=== PATIENT | male | born 1970 | race Caucasian/White ===

== ENCOUNTER 2022-04-02 12:32 | Emergency (ER) | payer OTHER, MEDICAID, SELFPAY ==
[2022-04-02] VITALS (8 sets, daily range): BP systolic 126–143; BP diastolic 84–90; PULSE 76–92; RESP 22; TEMP 36.6; O2SAT 94–98
--- NOTE | 2022-04-02 13:07 | DI.RAD.S_ITS ---
PROCEDURE: XR CHEST 1V INDICATIONS: chest pain TECHNIQUE: One view of the chest was acquired. COMPARISON: None. FINDINGS: Surgical changes and devices: None. Lungs and pleura: Lungs are clear. No pleural effusions or pneumothorax. Mediastinum: Mediastinal contours appear normal. Heart size is normal. Bones and chest wall: No suspicious bony lesions. Overlying soft tissues appear unremarkable. IMPRESSION: No acute cardiopulmonary abnormality. Dictated by: Ty Nova M.D. on 04/02/2022 at 14:37 Approved by: Ty Nova M.D. on 04/02/2022 at 14:38
[2022-04-02 13:24] LABS: Add Manual Diff / Slide Review NO; Basophils Absolute Auto 0 /uL (0-100); Basophils Percent Auto 0.5 % (0-2); Eosinophils Absolute Auto 300 /uL (0-450); Eosinophils Percent Auto 3.2 % (2-4); Hematocrit 42.8 % (41-53); Hemoglobin 14.7 g/dL (13.5-17.5); Lymphocytes Absolute Auto 2200 /uL (1100-4500); Mean Corpuscular HGB Conc 34.4 % (30-36); Mean Corpuscular Hemoglobin 28.9 PG (26-34); Mean Corpuscular Volume 84.1 fL (80-100); Monocytes Absolute Auto 600 /uL (0-900); Monocytes Percent Auto 7.3 % (3-14); Neutrophils Absolute Auto 5200 /uL (1500-7000); Platelet Count 290 X10^3/uL (150-400); Red Blood Cell Count 5.08 X10^6/uL (4.5-5.9); Red Cell Distribution Width 14.6 % (11.6-14.8); White Blood Cell Count 8.3 X10^3/uL (4.5-11.0)
[2022-04-02 13:40] LABS: COVID19 -Nasal RAPID Negative (Negative)
[2022-04-02 13:47] LABS: Alanine Aminotransferase 43 IU/L (<50); Albumin 4.4 g/dL (3.5-5.0); Albumin Globulin Ratio 1.3 (1.0-2.8); Alkaline Phosphatase 74 U/L (38-126); Aspartate Aminotransferase 26 IU/L (17-59); BUN Creatinine Ratio 13.8 (6-22); Bilirubin Total 0.6 mg/dL (0.2-1.3); Blood Urea Nitrogen 11 mg/dL (9-20); Carbon Dioxide 25 mmol/L (22-32); Chloride 104 mmol/L (98-107); Creatine Kinase 135 U/L (55-170); Estimated Glomerular Filt Rate > 60 mL/min (>60); Globulin 3.5 g/dL (1.7-4.1); Glucose 112 mg/dL (70-100); HEMOLYSIS 19 (0-50); Lipase 115 U/L (23-300); Magnesium 2.2 mg/dL (1.6-2.3); Potassium 4.3 mmol/L (3.4-5.1); Sodium 140 mmol/L (137-145); Total Protein 7.9 g/dL (6.3-8.2)
[2022-04-02 13:58] LABS: Troponin I < 0.012 ng/mL (0.01-0.034)
[2022-04-02 14:02] LABS: CKMB % Relative Index 0.5 % (1.5-5.0); Creatine Kinase MB 0.68 ng/mL (<2.37)
--- NOTE | 2022-04-02 15:05 | ED.URI ---
HPI - URI/Sore Throat <SEDA Alford - Last Filed: 04/02/22 19:08> General Chief Complaint: Upper Respiratory Symptoms Stated Complaint: cough/chest pain/pain to rt. side lower abd. Time Seen by Provider: 04/02/22 14:55 Source: patient Mode of arrival: Ambulatory History of Present Illness HPI Narrative: This is a 51-year-old male who presents to the emergency department complaining of a cough for the last 3 weeks, states he has seasonal allergies and has been triggered by the smoke in the air and has had a runny nose, frequent cough, and complains of a cough that will not go away. He denies history of asthma, states that he is a smoker, states that he is had COVID 2 times most recently in 2020. States that he has been using Benadryl which has been helpful at nighttime but not taking any other medications other than ibuprofen. 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 He denies fever, chills, difficulty breathing. Related Data Previous Rx's Medication Instructions Recorded albuterol sulfate 90 mcg/actuation 1 inh inhalation QID PRN shortness 04/02/22 aerosol inhaler of breath or wheezing #8.5 grams azithromycin 250 mg tablet See Rx Instructions PO .COMPLEX #6 04/02/22 tabs benzocaine 15 mg-menthol 3.6 mg 1 lorenzo mucous membrane Q4H PRN 04/02/22 lozenges (Cepacol Sore Throat cough #16 ea (benzocaine-menthol)) cetirizine 10 mg tablet 20 mg PO BEDTIME #20 tabs 04/02/22 Allergies Allergy/AdvReac Type Severity Reaction Status Date / Time No Known Drug Allergies Allergy Verified 04/02/22 13:06 Review of Systems <SEDA Alford - Last Filed: 04/02/22 19:08> Review of Systems Narrative: Review of systems is negative for acute abnormalities unless otherwise noted in HPI Patient History <SEDA Alford - Last Filed: 04/02/22 19:08> alcohol intake frequency: other Substance Use Type: does not use Exam <SEDA Alford - Last Filed: 04/02/22 19:08> Narrative Exam Narrative: Reviewed vitals signs and nursing notes. General: cooperative, comfortable, in no acute distress, well groomed HEENT: symmetrical facial expressions, moist mucous membranes, congested without sinus tenderness to maxillary and frontal sinuses, nares are patent bilaterally, without conjunctival injection Cardiovascular: regular rate and rhythm, no peripheral edema, warm extremities Respiratory: normal effort, able to speak in complete sentences, expiratory wheezes bilaterally, without stridor, hypoxia, mild tachypnea at 22 breaths a minute, no accessory muscle use or increased work of breathing, frequent nonproductive cough . GI: abdomen soft, nontender to palpation, nondistended, without masses, rebound tenderness or exquisite tenderness with exam. MSK: moves all extremities, neurovascularly intact, no weakness, normal tone Skin: brisk capillary refill, without pallor or erythema Neuro: normal speech and cognition, A&O x3, ambulatory, clear speech Psych: mental status is grossly normal, congruent mood, normal affect, pleasant and cooperative Initial Vital Signs Initial Vital Signs: Vital Signs Temperature 97.9 F 04/02/22 13:04 Pulse Rate 92 H 04/02/22 13:04 Respiratory Rate 22 04/02/22 13:04 Blood Pressure 126/90 04/02/22 13:04 Pulse Oximetry 98 04/02/22 13:04 Oxygen Delivery Method 04/02/22 13:04 <Zehra Langley DO - Last Filed: 04/02/22 19:34> Initial Vital Signs Initial Vital Signs: Vital Signs Temperature 97.9 F 04/02/22 13:04 Pulse Rate 92 H 04/02/22 13:04 Respiratory Rate 22 04/02/22 13:04 Blood Pressure 126/90 04/02/22 13:04 Pulse Oximetry 98 04/02/22 13:04 Oxygen Delivery Method 04/02/22 13:04 Course <SEDA Alford - Last Filed: 04/02/22 19:08> Orders Ordered: ED Orders 04/02/22 13:07 XR chest 1V Stat EKG-12 Lead Stat 04/02/22 13:13 Complete Blood Count AUTO DIFF Stat Comprehensive Metabolic Panel Stat Lipase Stat Magnesium Stat Troponin & CK Cardiac Panel Stat 04/02/22 13:21 COVID19 -Nasal RAPID/Pre-Proc Stat 04/02/22 15:03 RT Consult Eval and Treat NOW Discontinued Medications Albuterol (Albuterol 2.5 Mg/3 Ml Neb (Adult)) 2.5 mg INH NOW ONE Stop: 04/02/22 15:04 Last Admin: 04/02/22 15:13 Dose: 2.5 mg Documented By: KARLA Dexamethasone (Dexamethasone 10 Mg/Ml Vial) 10 mg PO NOW ONE Stop: 04/02/22 15:04 Last Admin: 04/02/22 15:24 Dose: Not Given Documented By: SONU Dexamethasone (Dexamethasone 10 Mg/Ml Vial) 10 mg PO NOW ONE Stop: 04/02/22 15:04 Last Admin: 04/02/22 15:26 Dose: 10 mg Documented By: SONU Ketorolac Tromethamine (Ketorolac 10 Mg Tablet) 10 mg PO NOW ONE Stop: 04/02/22 15:04 Last Admin: 04/02/22 15:27 Dose: 10 mg Documented By: SONU Reevaluation(s) Reevaluation #1: RT came by and gave patient an albuterol nebulizer, patient had marked improvement of his expiratory wheezing, tachypnea, he is still without hypoxia and states that he feels better. Vital Signs Vital signs: Vital Signs - 8 hr 04/02/22 13:04 04/02/22 15:16 04/02/22 14:44 Temperature 97.9 F Pulse Rate 92 H 85 Respiratory Rate 22 Blood Pressure 126/90 Pulse Oximetry 98 96 98 Oxygen Delivery Method Room Air Room Air 04/02/22 14:45 04/02/22 14:45 04/02/22 15:00 Temperature Pulse Rate 87 76 Respiratory Rate Blood Pressure 143/86 H Pulse Oximetry 97 96 Oxygen Delivery Method 04/02/22 15:30 04/02/22 15:59 04/02/22 15:59 Temperature Pulse Rate 88 84 Respiratory Rate Blood Pressure 135/84 Pulse Oximetry 96 96 Oxygen Delivery Method 04/02/22 16:00 Temperature Pulse Rate 78 Respiratory Rate Blood Pressure Pulse Oximetry 94 Oxygen Delivery Method <Zehra Langley, - Last Filed: 04/02/22 19:34> Orders Ordered: ED Orders 04/02/22 13:07 XR chest 1V Stat EKG-12 Lead Stat 04/02/22 13:13 Complete Blood Count AUTO DIFF Stat Comprehensive Metabolic Panel Stat Lipase Stat Magnesium Stat Troponin & CK Cardiac Panel Stat 04/02/22 13:21 COVID19 -Nasal RAPID/Pre-Proc Stat 04/02/22 15:03 RT Consult Eval and Treat NOW Discontinued Medications Albuterol (Albuterol 2.5 Mg/3 Ml Neb (Adult)) 2.5 mg INH NOW ONE Stop: 04/02/22 15:04 Last Admin: 04/02/22 15:13 Dose: 2.5 mg Documented By: KARLA Dexamethasone (Dexamethasone 10 Mg/Ml Vial) 10 mg PO NOW ONE Stop: 04/02/22 15:04 Last Admin: 04/02/22 15:24 Dose: Not Given Documented By: SONU Dexamethasone (Dexamethasone 10 Mg/Ml Vial) 10 mg PO NOW ONE Stop: 04/02/22 15:04 Last Admin: 04/02/22 15:26 Dose: 10 mg Documented By: SONU Ketorolac Tromethamine (Ketorolac 10 Mg Tablet) 10 mg PO NOW ONE Stop: 04/02/22 15:04 Last Admin: 04/02/22 15:27 Dose: 10 mg Documented By: SONU Vital Signs Vital signs: Vital Signs - 8 hr 04/02/22 13:04 04/02/22 15:16 04/02/22 14:44 Temperature 97.9 F Pulse Rate 92 H 85 Respiratory Rate 22 Blood Pressure 126/90 Pulse Oximetry 98 96 98 Oxygen Delivery Method Room Air Room Air 04/02/22 14:45 04/02/22 14:45 04/02/22 15:00 Temperature Pulse Rate 87 76 Respiratory Rate Blood Pressure 143/86 H Pulse Oximetry 97 96 Oxygen Delivery Method 04/02/22 15:30 04/02/22 15:59 04/02/22 15:59 Temperature Pulse Rate 88 84 Respiratory Rate Blood Pressure 135/84 Pulse Oximetry 96 96 Oxygen Delivery Method 04/02/22 16:00 Temperature Pulse Rate 78 Respiratory Rate Blood Pressure Pulse Oximetry 94 Oxygen Delivery Method MDM - URI/Sore Throat <SEDA Alford - Last Filed: 04/02/22 19:08> Lab Data Result diagrams: 04/02/22 13:13 04/02/22 13:13 Labs: Lab Results 04/02/22 04/02/22 04/02/22 Range/Units 13:13 13:13 13:21 WBC 8.3 (4.5-11.0) X10^3/uL RBC 5.08 (4.5-5.9) X10^6/uL Hgb 14.7 (13.5-17.5) g/dL Hct 42.8 (41-53) % MCV 84.1 (80-100) fL MCH 28.9 (26-34) PG MCHC 34.4 (30-36) % RDW 14.6 (11.6-14.8) % Plt Count 290 (150-400) X10^3/uL Neut % (Auto) 63.0 (50-75) % Lymph % (Auto) 26.0 (25-40) % Kleberg % (Auto) 7.3 (3-14) % Eos % (Auto) 3.2 (2-4) % Baso % (Auto) 0.5 (0-2) % Neut # (Auto) 5200 (2548-6241) /uL Lymph # (Auto) 2200 (4083-8665) /uL Kleberg # (Auto) 600 (0-900) /uL Eos # (Auto) 300 (0-450) /uL Baso # (Auto) 0 (0-100) /uL Sodium 140 (137-145) mmol/L Potassium 4.3 (3.4-5.1) mmol/L Chloride 104 (98-107) mmol/L Carbon Dioxide 25 (22-32) mmol/L BUN 11 (9-20) mg/dL Creatinine 0.80 (0.66-1.25) mg/dL Estimated GFR > 60 (>60) mL/min BUN/Creatinine Ratio 13.8 (6-22) Glucose 112 H (70-100) mg/dL Calcium 9.0 (8.4-10.2) mg/dL Magnesium 2.2 (1.6-2.3) mg/dL Total Bilirubin 0.6 (0.2-1.3) mg/dL AST 26 (17-59) IU/L ALT 43 (<50) IU/L Alkaline Phosphatase 74 (38-126) U/L Total Creatine Kinase 135 (55-170) U/L CK-MB (CK-2) 0.68 (<2.37) ng/mL CK-MB (CK-2) Rel Index 0.5 L (1.5-5.0) % Troponin I < 0.012 (0.01-0.034) ng/mL Total Protein 7.9 (6.3-8.2) g/dL Albumin 4.4 (3.5-5.0) g/dL Globulin 3.5 (1.7-4.1) g/dL Albumin/Globulin Ratio 1.3 (1.0-2.8) Lipase 115 (23-300) U/L SARS-CoV-2 (PCR) Negative (Negative) Imaging Data Chest x-ray: Radiologist's Impression: PROCEDURE:? XR CHEST 1V ? INDICATIONS:? chest pain ? TECHNIQUE:? One view of the chest was acquired.? ? COMPARISON:? None. ? FINDINGS:? ? Surgical changes and devices:? None.? ? Lungs and pleura:? Lungs are clear.? No pleural effusions or pneumothorax.? ? Mediastinum:? Mediastinal contours appear normal.? Heart size is normal.? ? Bones and chest wall:? No suspicious bony lesions.? Overlying soft tissues appear unremarkable.? ? IMPRESSION:? No acute cardiopulmonary abnormality. ? ? Dictated by: Ty Nova M.D. on 04/02/2022 at 14:37 ? ? Approved by: Ty Nova M.D. on 04/02/2022 at 14:38 ? MDM Narrative Medical decision making narrative: This is a 51-year-old gentleman who presents to the emergency department with complaint of a cough for the last 3 weeks without any improvement recently. Was found to be wheezing without history of asthma or COPD but is in a everyday smoker. Patient's wheezing improved after an albuterol nebulizer, patient has had this cough for 3 weeks, opted to treat him with dexamethasone 10 mg x 1 today, ketorolac and albuterol, he stated that he felt better and requests an antibiotic for his productive cough. Chest x-ray does not show any patchy opacity or focal consolidation, since patient was wheezing and is a smoker, gave patient azithromycin x5 days, cetirizine 20 mg q.h.s. with Cepacolthroat lozenges for his cough. I encouraged him to return to the emergency department if he has any worsening, follow up with his primary care provider, avoid smoking and to stay hydrated as best as able. Patient states understanding. Differential includes COPD exacerbation, allergic rhinitis, bronchitis, or viral upper respiratory infection. <Zehra C Mank, DO - Last Filed: 04/02/22 19:34> Lab Data Labs: Lab Results 04/02/22 04/02/22 04/02/22 Range/Units 13:13 13:13 13:21 WBC 8.3 (4.5-11.0) X10^3/uL RBC 5.08 (4.5-5.9) X10^6/uL Hgb 14.7 (13.5-17.5) g/dL Hct 42.8 (41-53) % MCV 84.1 (80-100) fL MCH 28.9 (26-34) PG MCHC 34.4 (30-36) % RDW 14.6 (11.6-14.8) % Plt Count 290 (150-400) X10^3/uL Neut % (Auto) 63.0 (50-75) % Lymph % (Auto) 26.0 (25-40) % Kleberg % (Auto) 7.3 (3-14) % Eos % (Auto) 3.2 (2-4) % Baso % (Auto) 0.5 (0-2) % Neut # (Auto) 5200 (3112-6683) /uL Lymph # (Auto) 2200 (2008-2172) /uL Kleberg # (Auto) 600 (0-900) /uL Eos # (Auto) 300 (0-450) /uL Baso # (Auto) 0 (0-100) /uL Sodium 140 (137-145) mmol/L Potassium 4.3 (3.4-5.1) mmol/L Chloride 104 (98-107) mmol/L Carbon Dioxide 25 (22-32) mmol/L BUN 11 (9-20) mg/dL Creatinine 0.80 (0.66-1.25) mg/dL Estimated GFR > 60 (>60) mL/min BUN/Creatinine Ratio 13.8 (6-22) Glucose 112 H (70-100) mg/dL Calcium 9.0 (8.4-10.2) mg/dL Magnesium 2.2 (1.6-2.3) mg/dL Total Bilirubin 0.6 (0.2-1.3) mg/dL AST 26 (17-59) IU/L ALT 43 (<50) IU/L Alkaline Phosphatase 74 (38-126) U/L Total Creatine Kinase 135 (55-170) U/L CK-MB (CK-2) 0.68 (<2.37) ng/mL CK-MB (CK-2) Rel Index 0.5 L (1.5-5.0) % Troponin I < 0.012 (0.01-0.034) ng/mL Total Protein 7.9 (6.3-8.2) g/dL Albumin 4.4 (3.5-5.0) g/dL Globulin 3.5 (1.7-4.1) g/dL Albumin/Globulin Ratio 1.3 (1.0-2.8) Lipase 115 (23-300) U/L SARS-CoV-2 (PCR) Negative (Negative) ECG Data Attestation: I personally reviewed and interpreted this ECG as follows: Interpretation: Sinus rhythm rate 80 5p are 162 QRS 88 QTC of [address] changes appreciated. Discharge Plan Departure Patient Disposition: Home Clinical Impression: Wheezing Cough Qualifiers: Cough type: acute Qualified Code(s): R05.1 - Acute cough Instructions: Acute Bronchitis, Cough, DI for Viral Upper Respiratory Infection -- Adult Activity Restrictions/Additional Instructions: *You have been diagnosed with a cough with a mild wheeze. This is likely a reactive airway from a trigger whether it is smoking, the smoke in the air, or your allergies. Please start taking Zyrtec 20 mg at night, this may help, you might not need Benadryl, please use albuterol occasionally if you are having shortness of breath or coughing frequently and it helps, if it is not helpful do not use it. Please take this antibiotic for the next 5 days to treat any bacterial component of this. Use the lozenges and try to stay hydrated, drink plenty of water, this will help a lot and avoid smoking as much as possible over the next few days until you are better. Please get plenty of sleep, I hope that this gets better soon. If you are having nasal drainage, please use Flonase morning and night, that will help prevent congestion. *What to do: *Please continue to take your regular medications as directed. [x] New medication prescriptions sent to your pharmacy: [[facility] ] [ ] New medication written as a paper prescription [ ] No new medications given *Please follow up with your primary care provider in 2-3 days, call for an appointment. Let them know you were seen in the Emergency Department and that we asked that you be seen for follow-up. We will electronically transmit a record of today's note if your PCP is in our system *If you do not have a primary care provider please contact [phone] to establish care with one of the [facility] primary care providers. *Return to Emergency Department if you should have any new, worsening, or concerning symptoms, such as [fever greater than 101F, chills, worsening pain, persistent vomiting or other bothersome symptoms]. Prescriptions: New azithromycin 250 mg tablet See Rx Instructions .ROUTE .COMPLEX Qty: 6 0RF Rx Instructions: For 250 mg dose pack: take 500 mg today (day 1), then 250 mg for 4 days (days 2-5) cetirizine 10 mg tablet 20 mg PO BEDTIME Qty: 20 0RF albuterol sulfate 90 mcg/actuation HFA aerosol inhaler 1 inh inhalation QID PRN (Reason: shortness of breath or wheezing) Qty: 8.5 0RF Cepacol Sore Throat (maribell-men) 15-3.6 mg lozenge 1 lorenzo mucous membrane Q4H PRN (Reason: cough) Qty: 16 0RF Visit Report Forms: Patient Portal/API
[2022-04-02] MEDS: ALBUTEROL 2.5 MG/3 ML NEB (ADULT) INH (15:13)
[2022-04-02] MEDS: DEXAMETHASONE 10 MG/ML VIAL PO (15:26)
[2022-04-02] MEDS: KETOROLAC 10 MG TABLET PO (15:27)
== END 2022-04-02 16:12 | disposition home or self-care (01) ==
PROVIDERS: Emergency Medicine; Emergency Provider Nurse Practitioner Critical Care Medicine
DX: R06.2 Wheezing (principal); R05.1 Acute cough; R07.9 Chest pain, unspecified; Z20.822 Contact with and (suspected) exposure to COVID-19
CPT/HCPCS: 71045; 80053; 82550; 82553; 83690; 83735; 84484; 85025; 87635; 93005; 93010; 94640; 99283; 99284; C9803; J1100; J7613

== ENCOUNTER 2023-06-05 15:46 | Emergency (ER) | payer SELFPAY ==
[2023-06-05 15:50] VITALS: BP 136/80; PULSE 88; RESP 18; TEMP 36.8; O2SAT 98; BMI 29.8
--- NOTE | 2023-06-05 16:25 | ED.GIBLEED ---
HPI - GI Bleed <María Bob PA-C - Last Filed: 06/05/23 17:26> General Chief complaint: GI Bleed Stated complaint: blood in stool Time Seen by Provider: 06/05/23 16:09 Source: patient Mode of arrival: Ambulatory History of Present Illness HPI Narrative: 52-year-old male with a history of alcoholism in remission for the past 10 years presents with concern for blood in his stool 1 time today and 2 additional episodes of blood in his stool in the past month. Patient states that today he had a bowel movement and saw there was some red blood in the toilet bowl, there was also a small amount of blood when he wiped. He states he tried to have another bowel movement since and did not have any blood with wiping. Patient endorses for the past few years he is had some ?liver pain? in his right upper abdomen that he associates with his history of alcoholism but has not been evaluated for this previously. He states this has not been worse this month or today when he has had the episodes of blood in his stool. He denies any new or low abdominal pain and has had normal intake and out go he also denies constipation and diarrhea, dizziness, lightheadedness or other symptoms. He states he has never had a colonoscopy. He also denies any previous history of blood in his stool prior to this month. Related Data Previous Rx's Medication Instructions Recorded albuterol sulfate 90 mcg/actuation 1 inh inhalation QID PRN shortness 04/02/22 aerosol inhaler of breath or wheezing #8.5 grams azithromycin 250 mg tablet See Rx Instructions PO .COMPLEX #6 04/02/22 tabs benzocaine 15 mg-menthol 3.6 mg 1 lorenzo mucous membrane Q4H PRN 04/02/22 lozenges (Cepacol Sore Throat cough #16 ea (benzocaine-menthol)) cetirizine 10 mg tablet 20 mg (2 x 10 mg) PO BEDTIME #20 04/02/22 tabs Allergies Allergy/AdvReac Type Severity Reaction Status Date / Time No Known Drug Allergies Allergy Verified 06/05/23 17:26 Review of Systems <ERASMO Boyd Last Filed: 06/05/23 17:26> Review of Systems Narrative: See HPI Patient History <María Bob PA-C - Last Filed: 06/05/23 17:26> Social History Smoking Status: Former smoker Smoking Status: Former smoker alcohol intake frequency: other Substance Use Type: does not use Exam <María Bob PA-C - Last Filed: 06/05/23 17:26> Narrative Exam Narrative: GENERAL: 52 year old patient appears stated age. Well-developed patient, in mild distress, nontoxic well-appearing. HEAD: Atraumatic. Normocephalic. EYES: Pupils equal round and reactive. Extraocular motions intact. No scleral icterus. No injection or drainage. ENT: Nose without bleeding, purulent drainage. Airway patent. NECK: Trachea midline. Non tender CARDIOVASCULAR: Regular rate and rhythm without murmurs, gallops, or rubs. RESPIRATORY: Clear to auscultation. Breath sounds equal bilaterally. No wheezes, rales, or rhonchi. GASTROINTESTINAL: Abdomen soft, very mild epigastric discomfort with palpation, otherwise non-tender, nondistended; based on exam and palpation liver does not feel enlarged. EXTREMITIES: Moving all extremities normal gait Rectal exam declined BACK: Nontender without deformity or crepitance. No flank tenderness. NEURO: AOx3. SKIN: No rash or erythema of visible areas Initial Vital Signs Initial Vital Signs: Vital Signs Temperature 98.3 F 06/05/23 15:50 Pulse Rate 88 06/05/23 15:50 Respiratory Rate 18 06/05/23 15:50 Blood Pressure 136/80 06/05/23 15:50 Pulse Oximetry 98 06/05/23 15:50 Oxygen Delivery Method Room Air 06/05/23 15:50 <Vicente Mayo DO - Last Filed: 06/05/23 17:28> Initial Vital Signs Initial Vital Signs: Vital Signs Temperature 98.3 F 06/05/23 15:50 Pulse Rate 88 06/05/23 15:50 Respiratory Rate 18 06/05/23 15:50 Blood Pressure 136/80 06/05/23 15:50 Pulse Oximetry 98 06/05/23 15:50 Oxygen Delivery Method Room Air 06/05/23 15:50 Course <María Bob PA-C - Last Filed: 06/05/23 17:26> Orders Ordered: ED Orders 06/05/23 15:58 [facility] 06/05/23 16:34 Complete Blood Count AUTO DIFF Stat Comprehensive Metabolic Panel Stat Lipase Stat Vital Signs Vital signs: Vital Signs - 8 hr 06/05/23 15:50 Temperature 98.3 F Pulse Rate 88 Respiratory Rate 18 Blood Pressure 136/80 Pulse Oximetry 98 Oxygen Delivery Method Room Air <Vicente Mayo DO - Last Filed: 06/05/23 17:28> Orders Ordered: ED Orders 06/05/23 15:58 [facility] 06/05/23 16:34 Complete Blood Count AUTO DIFF Stat Comprehensive Metabolic Panel Stat Lipase Stat Vital Signs Vital signs: Vital Signs - 8 hr 06/05/23 15:50 Temperature 98.3 F Pulse Rate 88 Respiratory Rate 18 Blood Pressure 136/80 Pulse Oximetry 98 Oxygen Delivery Method Room Air MDM - GI Bleed <María Bob PA-C - Last Filed: 06/05/23 17:26> Differential Diagnosis Differential diagnosis: Likely hemorrhoids, Lower gastrointestinal hemorrhage and hematochezia Medical Records Attestation: I reviewed the patient's medical records. Lab Data Attestation: I reviewed the patient's lab results. 06/05/23 16:34 06/05/23 16:34 Labs: Lab Results 06/05/23 Range/Units 16:34 WBC 6.5 (4.5-11.0) X10^3/uL RBC 4.88 (4.5-5.9) X10^6/uL Hgb 14.0 (13.5-17.5) g/dL Hct 40.5 L (41-53) % MCV 83.1 (80-100) fL MCH 28.8 (26-34) PG MCHC 34.6 (30-36) % RDW 13.5 (11.6-14.8) % Plt Count 308 (150-400) X10^3/uL Neut % (Auto) 63.3 (50-75) % Lymph % (Auto) 24.5 L (25-40) % [place] % (Auto) 7.9 (3-14) % Eos % (Auto) 3.4 (2-4) % Baso % (Auto) 0.9 (0-2) % Neut # (Auto) 4100 (4540-3884) /uL Lymph # (Auto) 1600 (3530-7556) /uL [place] # (Auto) 500 (0-900) /uL Eos # (Auto) 200 (0-450) /uL Baso # (Auto) 100 (0-100) /uL Sodium 137 (137-145) mmol/L Potassium 3.9 (3.4-5.1) mmol/L Chloride 104 (98-107) mmol/L Carbon Dioxide 25 (22-32) mmol/L BUN 12 (9-20) mg/dL Creatinine 0.73 (0.66-1.25) mg/dL Estimated GFR > 60 (>60) mL/min BUN/Creatinine Ratio 16.4 (6-22) Glucose 102 H (70-100) mg/dL Calcium 9.3 (8.4-10.2) mg/dL Total Bilirubin 0.5 (0.2-1.3) mg/dL AST 23 (17-59) IU/L ALT 48 (<50) IU/L Alkaline Phosphatase 69 (38-126) U/L Total Protein 7.8 (6.3-8.2) g/dL Albumin 4.3 (3.5-5.0) g/dL Globulin 3.5 (1.7-4.1) g/dL Albumin/Globulin Ratio 1.2 (1.0-2.8) Lipase 90 (23-300) U/L Treatment and disposition Shared decision making:: Shared decision-making was used in determining the patient's plan of care and evaluation today in the emergency department. MDM Narrative Medical decision making narrative: This is a well-appearing 52-year-old male with history of alcoholism in remission for the past 10 years who presents with concern for 1 episode of blood in his stool today and 2 other episodes in the past month. Patient's vitals are unremarkable today he has not had persistent bleeding or heavy bleeding, labs are obtained and his H&H is also looking good, his hematocrit is just slightly below normal. His liver enzymes are unremarkable. He is not symptomatic, and has no abdominal tenderness. Did have very slight epigastric discomfort and did endorse multiple years of right upper quadrant mild pains which I suspect are unrelated to his current complaint of blood in his stool. Imaging is not obtained. Discussed at length with the patient the importance of close follow-up possibly with GI versus general surgery as well as getting a colonoscopy. He is 52 and has not yet had one. After discussion he does decline a rectal exam today and this is deferred to follow-up with specialty care. Also discussed possibly looking into getting on state insurance as he currently is uninsured and does not have a PCP. He is encouraged to look into this as soon as possible and work on getting established with a primary care provider. He is advised regarding return precautions, follow up plan discussed, all questions answered. <Vicente Mayo, - Last Filed: 06/05/23 17:28> Lab Data Labs: Lab Results 06/05/23 Range/Units 16:34 WBC 6.5 (4.5-11.0) X10^3/uL RBC 4.88 (4.5-5.9) X10^6/uL Hgb 14.0 (13.5-17.5) g/dL Hct 40.5 L (41-53) % MCV 83.1 (80-100) fL MCH 28.8 (26-34) PG MCHC 34.6 (30-36) % RDW 13.5 (11.6-14.8) % Plt Count 308 (150-400) X10^3/uL Neut % (Auto) 63.3 (50-75) % Lymph % (Auto) 24.5 L (25-40) % [place] % (Auto) 7.9 (3-14) % Eos % (Auto) 3.4 (2-4) % Baso % (Auto) 0.9 (0-2) % Neut # (Auto) 4100 (9190-7874) /uL Lymph # (Auto) 1600 (4352-6406) /uL [place] # (Auto) 500 (0-900) /uL Eos # (Auto) 200 (0-450) /uL Baso # (Auto) 100 (0-100) /uL Sodium 137 (137-145) mmol/L Potassium 3.9 (3.4-5.1) mmol/L Chloride 104 (98-107) mmol/L Carbon Dioxide 25 (22-32) mmol/L BUN 12 (9-20) mg/dL Creatinine 0.73 (0.66-1.25) mg/dL Estimated GFR > 60 (>60) mL/min BUN/Creatinine Ratio 16.4 (6-22) Glucose 102 H (70-100) mg/dL Calcium 9.3 (8.4-10.2) mg/dL Total Bilirubin 0.5 (0.2-1.3) mg/dL AST 23 (17-59) IU/L ALT 48 (<50) IU/L Alkaline Phosphatase 69 (38-126) U/L Total Protein 7.8 (6.3-8.2) g/dL Albumin 4.3 (3.5-5.0) g/dL Globulin 3.5 (1.7-4.1) g/dL Albumin/Globulin Ratio 1.2 (1.0-2.8) Lipase 90 (23-300) U/L Discharge Plan Departure Patient Disposition: Home Clinical Impression: Rectal bleeding Activity Restrictions/Additional Instructions: *You have been diagnosed with rectal bleeding *What to do: *Please continue to take your regular medications as directed. [ ] New medication prescriptions sent to your pharmacy: [ ] [ ] New medication written as a paper prescription [X ] No new medications given *Please follow up with your primary care provider in 2-3 days, call for an appointment. Let them know you were seen in the Emergency Department and that we ask that you be seen in follow up. We will electronically transmit a record of today's note if your PCP is in our system. You came in today with concern for blood in your stool today and a few other episodes of this this month. It is certainly possible that this comes from hemorrhoids, we did not do a rectal exam today after discussion you declined this, I do think it is very important that you have close follow-up possibly with General surgery and get scheduled for a colonoscopy. They are certainly other potential causes of red blood in your stool other than hemorrhoids. If you do have persistent blood in your stool or heavy bleeding or other symptoms of concern such as dizziness lightheadedness please make sure you get re-evaluated immediately otherwise follow-up closely try to establish with a primary care provider I have included the name of 1 of our general surgeons below you can call their office and see if you can get it scheduled for an appointment. You can also talk to the medical front desk specialist here at the hospital about primary care providers that are taking new patients. *If you do not have a primary care provider please contact the [facility] Resource line at [phone]. They will ask some questions about your medical history and help get you set up with a doctor in the community. *Return to Emergency Department if you should have any new, worsening or concerning symptoms, such as [fever greater than 101 F, shaking chills, worsening pain, persistent vomiting or other bothersome symptoms] Prescriptions: No Action azithromycin 250 mg tablet See Rx Instructions .ROUTE .COMPLEX Qty: 6 0RF Rx Instructions: For 250 mg dose pack: take 500 mg today (day 1), then 250 mg for 4 days (days 2-5) cetirizine 10 mg tablet 20 mg PO BEDTIME Qty: 20 0RF albuterol sulfate 90 mcg/actuation HFA aerosol inhaler 1 inh inhalation QID PRN (Reason: shortness of breath or wheezing) Qty: 8.5 0RF Cepacol Sore Throat (maribell-men) 15-3.6 mg lozenge 1 lorenzo mucous membrane Q4H PRN (Reason: cough) Qty: 16 0RF Referrals: Lissett Small MD [Physician] - Miscellaneous,MD Ameya [Primary Care Provider] - Stand Alone Forms: Patient Portal/API ED Sign-out <Vicente Mayo, DO - Last Filed: 06/05/23 17:28> Cosign ED Attending Cosignature Attestation: Dr Mayo Co-Sign Statement: I was available for consultation during this patient's emergency department visit. This chart is signed by myself for administrative purposes only. I did not have direct contact with this patient during this visit. They were seen independently by the APC.
[2023-06-05 16:41] LABS: Add Manual Diff / Slide Review NO; Basophils Absolute Auto 100 /uL (0-100); Basophils Percent Auto 0.9 % (0-2); Eosinophils Absolute Auto 200 /uL (0-450); Eosinophils Percent Auto 3.4 % (2-4); Hematocrit 40.5 % (41-53); Lymphocytes Absolute Auto 1600 /uL (1100-4500); Lymphocytes Percent Auto 24.5 % (25-40); Mean Corpuscular HGB Conc 34.6 % (30-36); Mean Corpuscular Hemoglobin 28.8 PG (26-34); Mean Corpuscular Volume 83.1 fL (80-100); Monocytes Absolute Auto 500 /uL (0-900); Monocytes Percent Auto 7.9 % (3-14); Neutrophils Absolute Auto 4100 /uL (1500-7000); Neutrophils Percent Auto 63.3 % (50-75); Platelet Count 308 X10^3/uL (150-400); Red Blood Cell Count 4.88 X10^6/uL (4.5-5.9); Red Cell Distribution Width 13.5 % (11.6-14.8); White Blood Cell Count 6.5 X10^3/uL (4.5-11.0)
[2023-06-05 16:57] LABS: Alanine Aminotransferase 48 IU/L (<50); Albumin 4.3 g/dL (3.5-5.0); Albumin Globulin Ratio 1.2 (1.0-2.8); Alkaline Phosphatase 69 U/L (38-126); Aspartate Aminotransferase 23 IU/L (17-59); BUN Creatinine Ratio 16.4 (6-22); Bilirubin Total 0.5 mg/dL (0.2-1.3); Blood Urea Nitrogen 12 mg/dL (9-20); Calcium 9.3 mg/dL (8.4-10.2); Carbon Dioxide 25 mmol/L (22-32); Chloride 104 mmol/L (98-107); Estimated Glomerular Filt Rate > 60 mL/min (>60); Globulin 3.5 g/dL (1.7-4.1); Glucose 102 mg/dL (70-100); HEMOLYSIS < 15 (0-50); Lipase 90 U/L (23-300); Potassium 3.9 mmol/L (3.4-5.1); Sodium 137 mmol/L (137-145); Total Protein 7.8 g/dL (6.3-8.2)
[2023-06-05 17:29] VITALS: BP 133/84; PULSE 74; O2SAT 95
== END 2023-06-05 17:33 | disposition home or self-care (01) ==
PROVIDERS: Emergency Provider Student in an Organized Health Care Education/Training Program
DX: K62.5 Hemorrhage of anus and rectum (principal)
CPT/HCPCS: 36415; 80053; 83690; 85025; 99281; 99283